=== PATIENT | female | born 2000 | race Caucasian/White ===

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

== ENCOUNTER 2021-08-16 17:43 | Emergency (ER) | payer MEDICAID ==
[2021-08-16] MEDS ORDERED: Ondansetron 4 MG Tab.DIS PO ONE (21:09)
== END 2021-08-16 21:31 | disposition home or self-care (01) ==
LOC: JD.ED 17:43
DX: O99.891 Other specified diseases and conditions complicating pregnancy (principal); R10.84 Generalized abdominal pain; Z3A.00 Weeks of gestation of pregnancy not specified
CPT/HCPCS: 36415; 76817; 84702; 84703; 99284; A9270

== ENCOUNTER 2022-04-17 07:11 | Inpatient (IN) | payer MEDICAID ==
[2022-04-17] MEDS ORDERED: Acetaminophen 325 MG Tab PO PRN (07:23)
[2022-04-17] MEDS ORDERED: Ondansetron 4 MG/2 ML SDV IVPUSH PRN (07:23)
[2022-04-17] MEDS ORDERED: Nalbuphine 10 MG/0.5 ML Syringe IVPUSH PRN (07:23)
[2022-04-17] MEDS ORDERED: Lidocaine 1% 50 ML MDV INJECT PRN (07:23)
[2022-04-17] MEDS ORDERED: Calcium Carbonate 500 MG Tab.Chew PO PRN (07:23)
[2022-04-17] MEDS ORDERED: Oxytocin/Lactated Ringers 10 UNIT/1,000 ML BAG IV SCH ×2 (07:30)
[2022-04-17] MEDS: Lactated Ringers 1,000 ML IV SCH ×3 (10:32→21:00)
[2022-04-17] MEDS ORDERED: Bupivacaine/fentaNYL/NS 100 ML Bag EPIDUR PRN (15:56)
[2022-04-17] MEDS ORDERED: fentaNYL 100 MCG/2 ML SDV EPIDUR PRN (15:56)
[2022-04-17] MEDS ORDERED: ePHEDrine 50 MG/ML SDV IVPUSH PRN (15:56)
[2022-04-17] MEDS ORDERED: diphenhydrAMINE 50 MG/ML SDV IVPUSH PRN (15:56)
[2022-04-18] MEDS ORDERED: Ropivacaine 0.2% PF 2 MG/ML 20 ML SDV ONE
[2022-04-18] MEDS ORDERED: Methylergonovine 0.2 MG/1 ML Amp ONE (00:36)
[2022-04-18] MEDS: Witch Hazel Medicated Pads 40/Jar TOP PRN ×2 (01:33→18:02)
[2022-04-18] MEDS: Acetaminophen 325 MG Tab PO PRN ×3 (01:33→22:12)
[2022-04-18] MEDS: Docusate Sodium 100 MG Cap PO PRN ×3 (01:33→22:12)
[2022-04-18] MEDS: Benzocaine/Menthol 20%-0.5% Spray 78 GM Cannister TOP PRN ×2 (01:34→18:02)
[2022-04-18] MEDS: Ibuprofen 600 MG Tab PO PRN ×3 (06:15→18:02)
[2022-04-18] MEDS: Prenatal Multivitamin with Calcium/Folic Acid/Iron Tab PO SCH (11:04)
[2022-04-19] MEDS: Ibuprofen 600 MG Tab PO PRN ×2 (00:15→10:56)
[2022-04-19] MEDS ORDERED: Magnesium Hydroxide 400 MG/5 ML Susp 30 ML Cup PO ONE (08:52)
[2022-04-19] MEDS: Prenatal Multivitamin with Calcium/Folic Acid/Iron Tab PO SCH (10:55)
== END 2022-04-19 13:05 | disposition home or self-care (01) | DRG 807 ==
LOC: JD.OB 07:11 → OBSVTOIN 04-18 07:44
PROVIDERS: ADMIT Obstetrics & Gynecology; ATTEND Obstetrics & Gynecology
PROC: 10D07Z6 Extraction of Products of Conception, Vacuum, Via Natural or Artificial Opening (ICD-10-PCS; principal; 2022-04-18)
PROC: 10907ZC Drainage of Amniotic Fluid, Therapeutic from Products of Conception, Via Natural or Artificial Opening (ICD-10-PCS; 2022-04-18)
PROC: 3E033VJ Introduction of Other Hormone into Peripheral Vein, Percutaneous Approach (ICD-10-PCS; 2022-04-18)
PROC: 3E0R3BZ Introduction of Anesthetic Agent into Spinal Canal, Percutaneous Approach (ICD-10-PCS; 2022-04-18)
PROC: 00HU33Z Insertion of Infusion Device into Spinal Canal, Percutaneous Approach (ICD-10-PCS; 2022-04-18)
DX: O48.0 Post-term pregnancy (principal); Z37.0 Single live birth; Z3A.41 41 weeks gestation of pregnancy
CPT/HCPCS: 01967; 36415; 51701; 51702; 59025; 59409; 85025; 86592; A9270-GY; J2210; J2300; J2405; J2590; J2795; J3490; J7120

== ENCOUNTER 2023-01-15 01:28 | Emergency (ER) | payer MEDICAID | END 2023-01-15 01:40 | LOC: JD.ED 01:28 | DX: F10.129 Alcohol abuse with intoxication, unspecified (principal); Y90.0 Blood alcohol level of less than 20 mg/100 ml | CPT/HCPCS: 99283 ==